=== PATIENT | male | born 1990 | race American Indian/Alaskan Native ===

== ENCOUNTER 2020-06-24 11:18 | Emergency (ER) | payer OTHER ==
[2020-06-24 11:24] VITALS: BP 132/101
[2020-06-24] MEDS ORDERED: IBUPROFEN 800 MG TAB ONE (11:34)
[2020-06-24] MEDS ORDERED: IBUPROFEN 800 MG TAB PO ONE (11:38)
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
== END 2020-06-24 13:24 | disposition home or self-care (01) ==
LOC: ED 11:18
DX: S70.02XA Contusion of left hip, initial encounter (principal); J45.909 Unspecified asthma, uncomplicated; Z79.899 Other long term (current) drug therapy; V49.49XA Driver injured in collision with other motor vehicles in traffic accident, initial encounter; Y93.89 Activity, other specified; Y92.488 Other paved roadways as the place of occurrence of the external cause; Y99.8 Other external cause status
CPT/HCPCS: 99283